=== PATIENT | female | born 1995 | race Two or more races ===

== ENCOUNTER 2021-10-20 16:38 | Emergency (ER) | payer OTHER ==
[~2021-10-20] VITALS: Ht 154.9 cm; Wt 57.6 kg
[2021-10-20] MEDS ORDERED: PRENATABS FA T1 EACH PO (17:39)
== END 2021-10-20 21:48 | disposition home or self-care (01) ==
LOC: ER 16:38
DX: O26.851 Spotting complicating pregnancy, first trimester (principal); Z3A.01 Less than 8 weeks gestation of pregnancy